=== PATIENT | male | born 2000 | race Caucasian/White ===

== ENCOUNTER 2025-02-26 05:06 | Emergency (ER) | payer BC, SELFPAY ==
[2025-02-26 05:08] VITALS: BP 136/80
--- NOTE | 2025-02-26 07:08 | ED.GENMED ---
History of Present Illness
General
Chief Complaint: Eye Problems
Source: patient and spouse
Exam Limitations: none
Time Seen by Provider: 02/26/25 06:30
Nursing documentation reviewed up to this point in time: agreed with
History of Present Illness
History of Present Illness:
25-year-old male limited past medical history presents with eye pain, onset a few weeks ago seen in urgent care and then with an field sales specialist diagnosed with uveitis, he is on cycloplegic and steroid drops, had increased pain this morning lights
bother his eyes right greater than left, he is seeing Dr. Crystal Chaudhari has an appointment tomorrow for follow-up
Past History
Past History
ED Past Medical History: None
ED Past Surgical History: None
Social History
Tobacco: Non-smoker
Alcohol: None
Drug: None
Personal:
Living: with family
Employment: Employed
Review of Systems
Review of Systems
All Other Systems: Not applicable
EENT: Reports other (eye pain)
Phy Exam
Physical Exam
Physical Exam:
Physical Exam
General: 25 male looks uncomfortable with nontoxic
Neck: Dilated pupils OU sclera white mild photophobia bilaterally
Lungs: no acute respiratory distress.
Neuro: alert and oriented. no focal neurological deficits
Skin: no rash
Psychiatric: well kept. interactive and cooperative
Extremities: no edema.
Course
Orders/Labs/Results
Orders:
Orders
02/26/25 06:49
Ibuprofen [Motrin] 600 mg PO NOW STA
Oxycodone/Acetaminophen [Percocet 5/325] 1 tablet PO NOW STA
Vital Signs
Initial and Last Documented VS:
Initial Vital Signs
Temp Pulse Resp BP Pulse Ox
97.8 F 64 18 136/80 98
02/26/25 05:08 02/26/25 05:08 02/26/25 05:08 02/26/25 05:08 02/26/25 05:08
Last Documented Vital Signs
Temp Pulse Resp BP Pulse Ox
97.8 F 64 18 136/80 98
02/26/25 05:08 02/26/25 05:08 02/26/25 05:08 02/26/25 05:08 02/26/25 07:10
MDM/Problems Addressed
Differential Diagnosis Includes:
Uveitis, glaucoma, abrasion other
*Pulse Oximetry
SaO2: 98
Oxygen Mode of Delivery: Room air
Patient hypoxic: no
*Critical Care Note
Total Time (30-74mins, 75-104mins- exclusive of procedures): Not Applicable
Update Note
Update Note:
Update, patient with known uveitis under the care of field sales specialist, dilated pupils he is on cycloplegic, already on steroids, will try to get him comfortable check intraocular pressure
OD IOP 15 OS IOP 14
Patient feeling better
ED Attending Note
-
Portions of this chart may have been created with voice recognition software.� Occasional wrong word or��sound alike� substitutions may have occurred due to the inherent limitations of voice recognition software.
Discharge Plan
Departure
Patient Disposition: Home (Routine Discharge)
Date of Disposition: 02/26/25
Time of Disposition: 07:43
Patient with high blood pressure during this ER visit?: No
Condition: Good
Discharge Problem:
Eye pain
Prescriptions:
New
ibuprofen 600 mg tablet
600 mg PO Q6H PRN (Reason: Pain) Qty: 20 0RF
oxycodone-acetaminophen [Percocet] 5-325 mg tablet
1 tab PO Q6HPRN PRN (Reason: pain) Qty: 14 0RF
Referrals:
NONE,* [Family Provider, Internal Medicine]
CRYSTAL CHAUDHARI MD [Non-Admitting Privileges, Ophthalmology] - Keep scheduled appt
Activity Restrictions/Additional Instructions:
continue your eye drops as prescribed by Dr Chaudhari
Call Dr Chaudhari this am to discuss your symtoms
Interventions
Interventions:
*Risk Screen - Suicide Last Done: 02/26/25 05:08
*Neglect/Abuse Screening Last Done: 02/26/25 05:08
Discharge Date and Time
Print Language: LEBANESE
[2025-02-26] MEDS: MOTRIN 600 MG PO (07:19)
[2025-02-26] MEDS: PERCOCET 5/325 1 TABLET PO (07:20)
[2025-02-26 07:40] VITALS: BMI 26.6
[2025-02-26 07:44] VITALS: BP 134/68
== END 2025-02-26 08:08 | disposition home or self-care (01) ==
LOC: EMR 05:06
PROVIDERS: EMERGENCY PHYSICIAN Emergency Medicine
DX: H20.9 Unspecified iridocyclitis (principal)
CPT/HCPCS: 99283